=== PATIENT | male | born 1970 | race Caucasian/White ===

== ENCOUNTER 2016-04-29 08:07 | Emergency (ER) | payer OTHER ==
[~2016-04-29] VITALS: Ht 180.3 cm; Wt 75.3 kg
[2016-04-29 09:01] LABS: MCH 32.5 PG (29.0-34.0); MCHC 34.5 G/DL (30.0-36.0); MCV 94.2 FL (86-99); PLATELET COUNT 383 K/uL (156-360); RBC DIS.WIDTH-CV 13.7 % (11.8-14.6); RBC DIS.WIDTH-SD 47.8 % (39-53); WHITE BLOOD COUNT 11.2 K/uL (4.1-10.2)
[2016-04-29 09:24] LABS: CHLORIDE 105 mEq/L (99-109); POTASSIUM 4.2 mEq/L (3.7-5.4); SODIUM 140 mEq/L (136-147)
[2016-04-29 09:26] LABS: GLUCOSE 109 mg/dL (70-99)
[2016-04-29 09:27] LABS: ANION GAP 13 MEQ/L (2-14)
[2016-04-29 09:28] LABS: TOTAL BILIRUBIN 0.5 mg/dL (0.0-1.0)
[2016-04-29 09:29] LABS: ALKALINE PHOSPHATASE 57 IU/L (3-129)
[2016-04-29 09:30] LABS: GFR ESTIMATE (CALCULATED) > 59 mL/min/
[2016-04-29 09:31] LABS: UREA NITROGEN (BUN) 12 mg/dL (9-23)
[2016-04-29 09:33] LABS: LIPASE 27 U/L (1.0-51.0)
[2016-04-29] MEDS ORDERED: FLEXERIL10 MG PO (09:38)
[2016-04-29] MEDS ORDERED: LIDODERM 5% P1 PATCH TD (09:44)
[2016-04-29 09:49] VITALS: BP 168/89
== END 2016-04-29 09:49 | disposition home or self-care (01) ==
LOC: EME 08:07
PROVIDERS: Nurse Practitioner Family
DX: S29.012A Strain of muscle and tendon of back wall of thorax, initial encounter (principal)
CPT/HCPCS: 71020; 80053; 83690; 85027; 99281; 99283